=== PATIENT | female | born 1955 | race African-American/Black ===

== ENCOUNTER → 2019-11-01 | Outpatient (CLI) | payer OTHER | END | disposition home or self-care (01) | LOC: HBOWC 09:31 | PROVIDERS: ATTEND Surgery Plastic and Reconstructive Surgery | DX: L97.825 Non-pressure chronic ulcer of other part of left lower leg with muscle involvement without evidence of necrosis (principal); I87.8 Other specified disorders of veins; Z79.82 Long term (current) use of aspirin | CPT/HCPCS: 11043; G0463 ==

== ENCOUNTER → 2019-11-08 | Outpatient (CLI) | payer OTHER | END | disposition home or self-care (01) | LOC: HBOWC 09:00 | PROVIDERS: ATTEND Surgery Plastic and Reconstructive Surgery | DX: L97.825 Non-pressure chronic ulcer of other part of left lower leg with muscle involvement without evidence of necrosis (principal); I87.8 Other specified disorders of veins; I10 Essential (primary) hypertension; E03.9 Hypothyroidism, unspecified; Z96.653 Presence of artificial knee joint, bilateral; Z79.82 Long term (current) use of aspirin | CPT/HCPCS: 11043 ==

== ENCOUNTER → 2019-11-15 | Outpatient (CLI) | payer OTHER | END | disposition home or self-care (01) | LOC: HBOWC 08:47 | PROVIDERS: ATTEND Surgery Plastic and Reconstructive Surgery | DX: L97.825 Non-pressure chronic ulcer of other part of left lower leg with muscle involvement without evidence of necrosis (principal); I87.8 Other specified disorders of veins; I10 Essential (primary) hypertension; E03.9 Hypothyroidism, unspecified; Z96.653 Presence of artificial knee joint, bilateral; Z79.82 Long term (current) use of aspirin | CPT/HCPCS: 11043 ==

== ENCOUNTER → 2019-11-22 | Outpatient (CLI) | payer OTHER | END | disposition home or self-care (01) | LOC: HBOWC 08:49 | PROVIDERS: ATTEND Surgery Plastic and Reconstructive Surgery | DX: L97.825 Non-pressure chronic ulcer of other part of left lower leg with muscle involvement without evidence of necrosis (principal); I87.8 Other specified disorders of veins; I10 Essential (primary) hypertension; E03.9 Hypothyroidism, unspecified; Z96.653 Presence of artificial knee joint, bilateral; Z79.82 Long term (current) use of aspirin | CPT/HCPCS: 11043 ==

== ENCOUNTER → 2019-11-29 | Outpatient (CLI) | payer OTHER | END | disposition home or self-care (01) | LOC: HBOWC 08:50 | PROVIDERS: ATTEND Surgery Plastic and Reconstructive Surgery | DX: L97.825 Non-pressure chronic ulcer of other part of left lower leg with muscle involvement without evidence of necrosis (principal); I87.8 Other specified disorders of veins; I10 Essential (primary) hypertension; E03.9 Hypothyroidism, unspecified; Z96.653 Presence of artificial knee joint, bilateral; Z79.82 Long term (current) use of aspirin | CPT/HCPCS: 11043 ==

== ENCOUNTER → 2019-12-06 | Outpatient (CLI) | payer OTHER | END | disposition home or self-care (01) | LOC: HBOWC 07:46 | PROVIDERS: ATTEND Surgery Plastic and Reconstructive Surgery | DX: L97.825 Non-pressure chronic ulcer of other part of left lower leg with muscle involvement without evidence of necrosis (principal); I87.8 Other specified disorders of veins; I10 Essential (primary) hypertension; E03.9 Hypothyroidism, unspecified; Z96.653 Presence of artificial knee joint, bilateral; Z79.82 Long term (current) use of aspirin | CPT/HCPCS: 11043 ==

== ENCOUNTER → 2019-12-13 | Outpatient (CLI) | payer OTHER | END | disposition home or self-care (01) | LOC: HBOWC 09:41 | PROVIDERS: ATTEND Surgery Plastic and Reconstructive Surgery | DX: L97.825 Non-pressure chronic ulcer of other part of left lower leg with muscle involvement without evidence of necrosis (principal); S81.802D Unspecified open wound, left lower leg, subsequent encounter; I87.8 Other specified disorders of veins; I10 Essential (primary) hypertension; E03.9 Hypothyroidism, unspecified; Z96.653 Presence of artificial knee joint, bilateral; Z79.82 Long term (current) use of aspirin | CPT/HCPCS: 11043 ==

== ENCOUNTER → 2019-12-27 | Outpatient (CLI) | payer OTHER | END | disposition home or self-care (01) | LOC: HBOWC 09:43 | PROVIDERS: ATTEND Surgery Plastic and Reconstructive Surgery | DX: L97.825 Non-pressure chronic ulcer of other part of left lower leg with muscle involvement without evidence of necrosis (principal); S81.802D Unspecified open wound, left lower leg, subsequent encounter; I87.8 Other specified disorders of veins; I10 Essential (primary) hypertension; E03.9 Hypothyroidism, unspecified; Z96.653 Presence of artificial knee joint, bilateral; Z79.82 Long term (current) use of aspirin | CPT/HCPCS: G0463; Z7500 ==

== ENCOUNTER → 2020-01-24 | Outpatient (CLI) | payer OTHER | END | disposition home or self-care (01) | LOC: HBOWC 09:55 | PROVIDERS: ATTEND Surgery Plastic and Reconstructive Surgery | DX: L97.821 Non-pressure chronic ulcer of other part of left lower leg limited to breakdown of skin (principal); S81.802D Unspecified open wound, left lower leg, subsequent encounter; I87.8 Other specified disorders of veins; I10 Essential (primary) hypertension; E03.9 Hypothyroidism, unspecified; Z96.653 Presence of artificial knee joint, bilateral; Z79.82 Long term (current) use of aspirin; X58.XXXD Exposure to other specified factors, subsequent encounter ==